=== PATIENT | male | born 1975 | race Caucasian/White ===

== ENCOUNTER 2021-07-13 05:35 | Inpatient (IN) | payer OTHER ==
[~2021-07-13] VITALS: Ht 180.3 cm; Wt 86.3 kg
[2021-07-13] MEDS ORDERED: ASPIRIN 81MG TABLET PO ONE (06:15)
[2021-07-13 06:45] LABS: BASOPHILS % 0.3 % (0.0-2.0); EOSINOPHILS % 2.8 % (0.0-5.0); HEMOGLOBIN. 15.3 g/dL (14.0-18.0); LYMPHOCYTES % 29.8 % (20.0-50.0); MEAN CORPUSCULAR VOLUME 88.3 fL (80.0-94.0); MEAN PLATELET VOLUME 7.9 fl (7.4-10.4); MONOCYTES % 9.2 % (2.0-8.0); NEUTROPHILS % 57.9 % (40.0-76.0); PLATELET 276 x1000/uL (130-400); RED BLOOD CELL COUNT 5.09 mill/uL (4.7-6.1); RED CELL DISTRIBUTION WIDTH 12.6 % (11.6-14.6)
[2021-07-13 06:49] LABS: CHLORIDE 107 mEq/L (98-107)
[2021-07-13 06:54] LABS: INR 0.9; PARTIAL THROMBOPLASTIN TIME 27.6 sec (23.4-31.0)
[2021-07-13] MEDS ORDERED: DILTIAZEM HCL 125 MG in DEXT 5% WATER 100 ML IV SCH (07:00)
[2021-07-13] MEDS ORDERED: HEPARIN 25,000 UNITS PREMIX 250 ML IV ONE (07:00)
[2021-07-13] MEDS ORDERED: DILTIAZEM HCL 5MG/ML 5ML VIAL IV PRN (07:00)
[2021-07-13] MEDS ORDERED: DILTIAZEM HCL 125 MG in DEXT 5% WATER 100 ML IV ONE (07:00)
[2021-07-13] MEDS ORDERED: HEPARIN 5000 UNITS/ML VIAL IV SCH (10:00)
[2021-07-13] MEDS ORDERED: HEPARIN 5000 UNITS/ML VIAL IV PRN ×2 (10:00)
[2021-07-13] MEDS ORDERED: HEPARIN 25,000 UNITS PREMIX 250 ML IV PRN (10:00)
[2021-07-13] MEDS ORDERED: ONDANSETRON HCL 4MG/2ML INJ IV ONE (11:00)
[2021-07-13] MEDS ORDERED: DILTIAZEM HCL 60MG TABLET PO ONE (11:30)
[2021-07-13] MEDS ORDERED: ENOXAPARIN 80MG/0.8ML SYR SUBCUT NR (15:00)
[2021-07-13 18:03] VITALS: BP 116/70
[2021-07-13 18:33] VITALS: BP 118/47
[2021-07-13 20:00] VITALS: BP 109/59
[2021-07-13] MEDS: DILTIAZEM HCL 60MG TABLET PO SCH (21:30)
[2021-07-13 22:00] VITALS: BP 91/54
[2021-07-14] VITALS (8 sets, daily range): BP systolic 98–149; BP diastolic 43–74
[2021-07-14 05:51] LABS: BASOPHILS % 0.4 % (0.0-2.0); EOSINOPHILS % 2.8 % (0.0-5.0); HEMATOCRIT. 42.5 % (42.0-52.0); HEMOGLOBIN. 14.8 g/dL (14.0-18.0); LYMPHOCYTES % 34.3 % (20.0-50.0); MEAN CORPUSCULAR HEMOGLOBIN 31.1 pg (28.0-32.0); MEAN CORPUSCULAR VOLUME 89.5 fL (80.0-94.0); NEUTROPHILS % 51.5 % (40.0-76.0); PLATELET 240 x1000/uL (130-400); RED BLOOD CELL COUNT 4.75 mill/uL (4.7-6.1)
[2021-07-14] MEDS: DILTIAZEM HCL 60MG TABLET PO SCH (06:15)
[2021-07-14 06:59] LABS: CHLORIDE 105 mEq/L (98-107)
[2021-07-14] MEDS ORDERED: ENOXAPARIN 40MG/0.4ML SYR SUBCUT SCH (09:00)
[2021-07-14] MEDS ORDERED: ASPIRIN 81MG EC TABLET PO SCH (09:15)
[2021-07-14 10:42] LABS: *BARBITURATES SCREEN URINE NEGATIVE (NEGATIVE)
[2021-07-14 11:05] LABS: *AMPHETAMINES SCREEN URINE NEGATIVE (NEGATIVE)
[2021-07-14 11:07] LABS: *BENZODIAZEPINES SCREEN URINE NEGATIVE (NEGATIVE)
[2021-07-14 11:10] LABS: METHADONE URINE SCREEN NEGATIVE (NEGATIVE)
[2021-07-14 11:11] LABS: OPIATES URINE SCREEN NEGATIVE (NEGATIVE)
[2021-07-14 11:13] LABS: PHENCYCLIDINE URINE SCREEN NEGATIVE (NEGATIVE)
[2021-07-14 11:16] LABS: CANNABINOID URINE SCREEN NEGATIVE (NEGATIVE)
[2021-07-14 11:55] LABS: *COCAINE SCREEN URINE NEGATIVE (NEGATIVE)
== END 2021-07-14 13:22 | disposition home or self-care (01) | DRG 310 ==
LOC: ER 05:35 → MICUSO 09:15 → ENRESERV 09:36 → 3WST 16:12
PROVIDERS: ADMIT Internal Medicine; ATTEND Internal Medicine
DX: I48.0 Paroxysmal atrial fibrillation (principal); E78.00 Pure hypercholesterolemia, unspecified; I47.1 Supraventricular tachycardia; E78.5 Hyperlipidemia, unspecified; Z82.3 Family history of stroke; Z82.49 Family history of ischemic heart disease and other diseases of the circulatory system
CPT/HCPCS: 36415; 71045; 80048; 80053; 80305; 82962; 83735; 83880; 84443; 84484; 85025; 93005; 93306; 99291; J1644; J1650; J2405; J3490; J7060

== ENCOUNTER 2022-12-09 04:19 | Inpatient (IN) | payer BC, OTHER ==
[~2022-12-09] VITALS: Ht 180.3 cm; Wt 79.0 kg
[2022-12-09] MEDS ORDERED: ASPIRIN 81MG TABLET PO ONE (05:30)
[2022-12-09] MEDS ORDERED: DILTIAZEM HCL 90MG TABLET PO ONE (05:30)
[2022-12-09] MEDS ORDERED: NITROGLYCERIN 0.4MG TABLET SL SL PRN (05:30)
[2022-12-09 06:24] LABS: BASOPHILS % 0.5 % (0.0-2.0); HEMOGLOBIN. 15.6 g/dL (14.0-18.0); MEAN CORPUSCULAR HEMOGLOBIN 32.2 pg (28.0-32.0); MEAN CORPUSCULAR VOLUME 90.5 fL (80.0-94.0); MEAN PLATELET VOLUME 7.7 fl (7.4-10.4); MONOCYTES % 9.2 % (2.0-8.0); NEUTROPHILS % 60.3 % (40.0-76.0); PLATELET 294 x1000/uL (130-400); RED BLOOD CELL COUNT 4.86 mill/uL (4.7-6.1); RED CELL DISTRIBUTION WIDTH 12.7 % (11.6-14.6)
[2022-12-09 06:43] LABS: CHLORIDE 112 mEq/L (98-107)
[2022-12-09 06:54] LABS: ETHANOL BLOOD < 10 mg/dL
[2022-12-09] MEDS: ENOXAPARIN 40MG/0.4ML SYR SUBCUT SCH (11:00)
[2022-12-09 12:29] LABS: *AMPHETAMINES SCREEN URINE NEGATIVE (NEGATIVE); *BARBITURATES SCREEN URINE NEGATIVE (NEGATIVE); *BENZODIAZEPINES SCREEN URINE NEGATIVE (NEGATIVE); *COCAINE SCREEN URINE NEGATIVE (NEGATIVE); CANNABINOID URINE SCREEN NEGATIVE (NEGATIVE); METHADONE URINE SCREEN NEGATIVE (NEGATIVE); OPIATES URINE SCREEN NEGATIVE (NEGATIVE); PHENCYCLIDINE URINE SCREEN NEGATIVE (NEGATIVE)
[2022-12-09 12:40] VITALS: BP 114/70
[2022-12-09 12:50] VITALS: BP 114/70
[2022-12-09] MEDS: DILTIAZEM HCL 60MG TABLET PO SCH ×2 (13:41→20:15)
[2022-12-09 16:00] VITALS: BP 114/72
[2022-12-09 19:54] VITALS: BP 121/70
[2022-12-10 00:02] VITALS: BP 103/53
[2022-12-10 04:00] VITALS: BP 99/50
[2022-12-10] MEDS: DILTIAZEM HCL 60MG TABLET PO SCH (05:00)
[2022-12-10 06:52] LABS: BASOPHILS % 0.7 % (0.0-2.0); EOSINOPHILS % 3.1 % (0.0-5.0); HEMATOCRIT. 44.5 % (42.0-52.0); HEMOGLOBIN. 15.4 g/dL (14.0-18.0); LYMPHOCYTES % 33.7 % (20.0-50.0); MEAN CORPUSCULAR HEMOGLOBIN 31.6 pg (28.0-32.0); MEAN CORPUSCULAR VOLUME 91.2 fL (80.0-94.0); MEAN PLATELET VOLUME 7.9 fl (7.4-10.4); MONOCYTES % 9.9 % (2.0-8.0); NEUTROPHILS % 52.6 % (40.0-76.0); PLATELET 266 x1000/uL (130-400); RED BLOOD CELL COUNT 4.88 mill/uL (4.7-6.1)
[2022-12-10 08:00] VITALS: BP 124/68
[2022-12-10] MEDS ORDERED: ASPIRIN 81MG EC TABLET PO SCH (08:00)
[2022-12-10 09:20] LABS: CHLORIDE 109 mEq/L (98-107)
[2022-12-10] MEDS: ENOXAPARIN 40MG/0.4ML SYR SUBCUT SCH (10:33)
[2022-12-10] MEDS ORDERED: CARLA MT (10:58)
[2022-12-10 11:40] VITALS: BP 124/68
[2022-12-10 12:00] VITALS: BP 113/74
[2022-12-10] MEDS ORDERED: DILTIAZEM HCL 30MG TABLET PO SCH (14:00)
== END 2022-12-10 13:55 | disposition home or self-care (01) | DRG 309 ==
LOC: ER 04:19 → EDBEDREQ 08:05 → 7WST 09:04 → EDBEDREQ 09:06 → EDBEDREQTM 09:06
PROVIDERS: ADMIT Internal Medicine; ATTEND Internal Medicine
DX: I48.91 Unspecified atrial fibrillation (principal); D68.69 Other thrombophilia; E78.00 Pure hypercholesterolemia, unspecified; I10 Essential (primary) hypertension; E78.5 Hyperlipidemia, unspecified; Z79.82 Long term (current) use of aspirin
CPT/HCPCS: 36415; 71045; 80048; 80053; 80305; 80320; 83735; 83880; 84443; 84484; 85025; 93005; 93306; 99285; J1650; G0480